=== PATIENT | female | born 1995 | race Caucasian/White ===

== ENCOUNTER 2018-02-28 17:26 | Inpatient (IN) | payer SELFPAY ==
[~2018-02-28] VITALS: Ht 162.6 cm; Wt 53.1 kg
[2018-02-28 18:11] LABS: Basophils # (auto) 0.1 uL; Neutrophils # (auto) 8.7 uL; Nucleated Red Blood Cells % 0.2 %
[2018-02-28 18:15] LABS: Alanine Aminotransferase 11 U/L (13-56); Albumin 2.7 g/dL (3.4-5.0); Alkaline Phosphatase 62 U/L (45-117); Anion Gap 6 (5-15); Aspartate Aminotransferase 9 U/L (15-37); BUN/Creatinine Ratio 9.5; Bilirubin, Total < 0.1 mg/dL (0.2-1.0); Blood Urea Nitrogen 7 mg/dL (7-18); Calcium 7.9 mg/dL (8.5-10.1); Carbon Dioxide 26 mmol/L (21-32); Chloride 106 mmol/L (98-107); Eosinophils # (auto) 0.1 uL; Eosinophils % (auto) 1.1 % (0.0-7.0); GFR African American 127 mL/min; GFR Non-African American 105 mL/min; Glucose 92 mg/dL (74-106); Hematocrit 14.5 % (36.0-46.0); Lymphocytes # (auto) 2.2 uL; Lymphocytes % (auto) 18.5 % (10.0-50.0); Mean Corpuscular Hemoglobin 17.8 pg (28.0-32.0); Mean Corpuscular Hgb Conc. 29.3 g/dL (32.0-36.0); Mean Corpuscular Volume 60.7 fL (80.0-100.0); Monocytes # (auto) 0.7 uL; Monocytes % (auto) 5.7 % (0.0-12.0); Neutrophils % (auto) 73.7 % (37.0-80.0); Potassium 3.8 mmol/L (3.5-5.1); Red Blood Cells 2.39 10^6/uL (4.0-5.20); Red Cell Distribution Width 19.1 % (11.8-14.3); Sodium 138 mmol/L (136-145); Total Protein 9.3 g/dL (6.4-8.2); White Blood Cell 11.8 10^3/uL (4.4-10.8)
[2018-02-28 18:19] LABS: Hemoglobin 4.2 g/dL (12.2-16.2)
[2018-02-28 18:32] LABS: Platelet Count (auto) 515 10^3/uL (140-450)
[2018-02-28 20:50] LABS: Urine Bacteria NONE SEEN /hpf (None Seen); Urine Blood 2+ /uL (Negative); Urine Mucus FEW (None Seen); Urine Specific Gravity 1.016 (1.001-1.035); Urine WBC 47 /hpf (0 - 5)
[2018-02-28] MEDS ORDERED: ACETAMINOPHEN 325 MG TAB PO PRN (21:00)
[2018-02-28] MEDS ORDERED: MORPHINE SULFATE 4 MG/ML SYR/VIAL IV PRN (21:00)
[2018-02-28] MEDS ORDERED: TEMAZEPAM 15 MG CAP PO PRN (21:00)
[2018-02-28] MEDS ORDERED: NITROGLYCERIN 0.4 MG SL TAB SL PRN (21:00)
[2018-02-28] MEDS ORDERED: ONDANSETRON HCL 4 MG/2 ML VIAL IV PRN (21:00)
[2018-02-28 21:15] VITALS: BP 113/65
[2018-02-28 21:30] VITALS: BP 105/54
[2018-02-28] MEDS: HYDROcodone-ACET 5/325MG TAB PO PRN (21:44)
[2018-02-28 21:45] VITALS: BP 106/60
[2018-02-28] MEDS: SODIUM CHLORIDE 0.9% 1,000 ML IV SCH ×2 (21:45→23:51)
[2018-02-28 22:00] VITALS: BP 119/66
[2018-02-28] MEDS ORDERED: ASPirin-EC 325mg tab PO ONE (22:00)
[2018-02-28 22:58] VITALS: BP 102/47
[2018-02-28 23:46] VITALS: BP 91/46
[2018-03-01] VITALS (20 sets, daily range): BP systolic 90–117; BP diastolic 43–80
[2018-03-01] MEDS: FAMOTIDINE 20 MG TAB PO SCH ×3 (00:09→21:25)
[2018-03-01 07:36] LABS: Basophils # (auto) 0.1 uL; Eosinophils # (auto) 0.3 uL
[2018-03-01 07:39] LABS: Basophils % (auto) 0.9 % (0.0-2.0); Eosinophils % (auto) 3.2 % (0.0-7.0); Hematocrit 23.9 % (36.0-46.0); Hemoglobin 7.7 g/dL (12.2-16.2); Lymphocytes # (auto) 2.2 uL; Lymphocytes % (auto) 24.2 % (10.0-50.0); Mean Corpuscular Hemoglobin 22.9 pg (28.0-32.0); Mean Corpuscular Hgb Conc. 32.1 g/dL (32.0-36.0); Mean Corpuscular Volume 71.3 fL (80.0-100.0); Monocytes % (auto) 11.2 % (0.0-12.0); Neutrophils # (auto) 5.4 uL; Neutrophils % (auto) 60.5 % (37.0-80.0); Nucleated Red Blood Cells % 0.3 %; Platelet Count (auto) 371 10^3/uL (140-450); Red Blood Cells 3.36 10^6/uL (4.0-5.20); White Blood Cell 8.9 10^3/uL (4.4-10.8)
[2018-03-01 07:52] LABS: Red Cell Distribution Width 24.5 % (11.8-14.3)
[2018-03-01 07:53] LABS: Albumin 2.2 g/dL (3.4-5.0); Calcium 7.8 mg/dL (8.5-10.1); Potassium 3.9 mmol/L (3.5-5.1)
[2018-03-01 07:56] LABS: BUN/Creatinine Ratio 8.8
[2018-03-01 07:59] LABS: Bilirubin, Total 0.4 mg/dL (0.2-1.0); Total Protein 7.9 g/dL (6.4-8.2)
[2018-03-01] MEDS: SODIUM CHLORIDE 0.9% 1,000 ML IV SCH ×2 (14:30→21:25)
[2018-03-01] MEDS: FERROUS SULFATE 325 MG TAB PO SCH (17:48)
[2018-03-01] MEDS: ASCORBIC ACID 500 MG TAB PO SCH (17:49)
[2018-03-01] MEDS: DOCUSATE SOD 100 MG CAP PO SCH (21:25)
[2018-03-02] MEDS: HYDROcodone-ACET 5/325MG TAB PO PRN ×2 (00:14→10:24)
[2018-03-02 05:24] VITALS: BP 100/56
[2018-03-02 05:36] LABS: Hemoglobin 9.5 g/dL (12.2-16.2); Lymphocytes % (auto) 19.9 % (10.0-50.0); Monocytes % (auto) 8.4 % (0.0-12.0); Nucleated Red Blood Cells % 0.6 %
[2018-03-02 05:41] LABS: Basophils # (auto) 0 uL; Basophils % (auto) 0.4 % (0.0-2.0); Eosinophils # (auto) 0.4 uL; Eosinophils % (auto) 3.4 % (0.0-7.0); Lymphocytes # (auto) 2.4 uL; Mean Corpuscular Hemoglobin 23.5 pg (28.0-32.0); Mean Corpuscular Hgb Conc. 31.6 g/dL (32.0-36.0); Mean Corpuscular Volume 74.2 fL (80.0-100.0); Neutrophils # (auto) 8.1 uL; Neutrophils % (auto) 67.9 % (37.0-80.0); Platelet Count (auto) 407 10^3/uL (140-450); Red Blood Cells 4.05 10^6/uL (4.0-5.20); White Blood Cell 11.9 10^3/uL (4.4-10.8)
[2018-03-02 05:44] LABS: Red Cell Distribution Width 26.2 % (11.8-14.3)
[2018-03-02 05:52] LABS: BUN/Creatinine Ratio 9.1; Calcium 7.9 mg/dL (8.5-10.1)
[2018-03-02] MEDS: ASCORBIC ACID 500 MG TAB PO SCH (08:18)
[2018-03-02] MEDS: FERROUS SULFATE 325 MG TAB PO SCH (08:18)
[2018-03-02 09:00] VITALS: BP 111/69
[2018-03-02] MEDS: DOCUSATE SOD 100 MG CAP PO SCH (10:23)
[2018-03-02] MEDS: FAMOTIDINE 20 MG TAB PO SCH (10:23)
[2018-03-02] MEDS: SODIUM CHLORIDE 0.9% 1,000 ML IV SCH (10:24)
[2018-03-02] MEDS ORDERED: ALPRAZolam 0.5 MG TAB PO ONE (11:45)
[2018-03-02 12:44] VITALS: BP 110/67
== END 2018-03-02 14:30 | disposition home or self-care (01) | DRG 532 ==
LOC: ER 17:26 → EDBD 17:26 → TELE 17:27 → TELE-WESTW 22:22
PROVIDERS: ADMIT Nurse Practitioner; ATTEND Internal Medicine
PROC: 30233N1 Transfusion of Nonautologous Red Blood Cells into Peripheral Vein, Percutaneous Approach (ICD-10-PCS; principal; 2018-02-28)
DX: N93.8 Other specified abnormal uterine and vaginal bleeding (principal); E44.0 Moderate protein-calorie malnutrition; D64.9 Anemia, unspecified; G47.00 Insomnia, unspecified; Z68.20 Body mass index [BMI] 20.0-20.9, adult
CPT/HCPCS: 36415; 36430; 71045; 76830; 76856; 80048; 80053; 81001; 81025; 84702; 85025; 86850; 86900; 86901; 86920; 96374; 99291; J2405